=== PATIENT | male | born 1995 | race Caucasian/White ===

== ENCOUNTER 2017-11-08 12:09 | Emergency (ER) | payer OTHER ==
--- NOTE | 2017-11-08 12:49 | ED ---
Psychiatric Complaint - HPI Summary HPI Summary: The pt is a 21 y/o male with MHx of depression BIBA to [facility] c/o suicidal ideations for the last 2 months worse today. His counselor referred him to the ED. The stress is aggravated by a recent breakup with his girlfriend. He denies any SI and HI at bedside. He also denies any WILCOX, blurred vision, sore throat, dysuria, pedal edema, dysuria, abd pain, and hallucinations. - History Of Current Complaint Chief Complaint: EDMentalHealth Hx Obtained From: Patient Onset/Duration: Gradual Onset, Lasting Weeks - 8 weeks, Worse Since - Today Aggravating Factor(s): Recent Stress Related History: Positive For: Prior Psychiatric Issues Has Suicidal: Reports: Thoughts Has Homicidal: Denies: Thoughts Recent Stressor(s): Break up with girlfriend - Allergies/Home Medications Allergies/Adverse Reactions: Allergies Allergy/AdvReac Type Severity Reaction Status Date / Time No Known Allergies Allergy Verified 11/08/17 12:26 PMH/Surg Hx/FS Hx/Imm Hx Previously Healthy: No Opthamlomology History: Denies: Hx Legally Blind EENT History: Denies: Hx Deafness Psychiatric History: Reports: Hx Depression Infectious Disease History: No Infectious Disease History: Denies: Traveled Outside the [place] in Last 30 Days - Family History Known Family History: Negative: Seizure Disorder, Blood Disorder - Social History Occupation: Student Lives: Dormitory/Roommates Alcohol Use: None Substance Use Type: Reports: Marijuana Smoking Status (MU): Current Some Day Smoker Review of Systems Negative: Fever, Chills Negative: Blurred Vision Negative: Sore Throat, Ear Ache Negative: Chest Pain Negative: Shortness Of Breath Negative: Abdominal Pain Negative: dysuria Negative: Edema Negative: Rash, Bruising Negative: Headache Positive: Other - Negative: Hallucinations, SI/HI All Other Systems Reviewed And Are Negative: No Physical Exam - Summary Physical Exam Summary: Appearance: Alert, conversive, nontoxic appearing Skin: Warm, dry, no mottling, no rashes, no contusions HEENT: EOMI, PERRL, moist mucous membranes Neck: No masses on the neck, supple Respiratory: Clear to auscultation, breath sounds present, no rales, no rhonchi , no wheezes Cardiovascular: RRR, pulses are symmetrical in both lower and upper extremities Abdomen: Soft, non-tender Bowel Sounds: Present Musculoskeletal: No CVA tenderness, no obvious deformity, moving all extremities in a grossly normal manner Neurological: A&Ox3, CN II-XII Intact, moving all extremities symmetrically Psychiatric: Normal affect and mood; denies SI/HI Triage Information Reviewed: Yes Vital Signs On Initial Exam: Initial Vitals Temp Pulse Resp BP Pulse Ox 98.2 F 63 16 116/47 99 11/08/17 12:26 11/08/17 12:26 11/08/17 12:26 11/08/17 12:26 11/08/17 12:26 Vital Signs Reviewed: Yes Diagnostics - Vital Signs Vital Signs Temp Pulse Resp BP Pulse Ox 11/08/17 12:26 98.2 F 63 16 116/47 99 - Laboratory Result Diagrams: 11/08/17 13:30 11/08/17 13:30 Lab Statement: Any lab studies that have been ordered have been reviewed, and results considered in the medical decision making process. - EKG 13:24 Cardiac Rate: NL - 60 bpm EKG Interpretation: Normal QTC; Normal QRS and Normal axes Re-Evaluation - Re-Evaluation First Eval Re-Evaluation Time: 13:09 Change: Unchanged Comment: Discussed with the pt's mother and notified her about consulting his psychiatrist. Course/Dx - Course Course Of Treatment: A 21 year-old M with a MHx of depression presents to the ED with a CC of SI for the last 2 months. His counselor referred him to the ED. He denies any SI/HI WILCOX, blurred vision, sore throat, dysuria, pedal edema, dysuria, abd pain, and hallucinations. The patient got cleared for a MHE at 13: 21. An EKG reveals a normal sinus rhythm, normal QTC, normal QRS, normal axes. In the ED course, pt was not given any medications. The physical exam is normal. The patient will be discharged with a final Dx of depression. Pt is agreeable with this plan. Allergies noted. - Differential Dx/Clinical Impression Provider Diagnosis: Depression Discharge - Sign-Out/Discharge Documenting (check all that apply): Patient Departure - Discharge Plan Condition: Stable Disposition: HOME Patient Education Materials: Depression (ED) Referrals: [facility] - Prateek TIJERINA [Primary Care Provider] - 3 Days Additional Instructions: Return to ED for any new or worsening symptoms - Billing Disposition and Condition Condition: STABLE Disposition: Home - Attestation Statements Document Initiated by Rezaibmercedes: Yes Documenting Scribe: Meaghan Dexter Provider For Whom Chastity is Documenting (Include Credential): Dr. Avis Montano MD Scribe Attestation: Meaghan Blake , scribed for Dr. Avis Montano MD on 11/13/17 at 0938. Scribe Documentation Reviewed: Yes Provider Attestation: The documentation as recorded by the rezaibeMeaghan accurately reflects the service I personally performed and the decisions made by me, Dr. Avis Montano MD
[2017-11-08 13:38] LABS: ABS Basophils 0 10^3/ul (0-0.2); ABS Eosinophils 0.1 10^3/ul (0-0.6); ABS Lymphocytes 1.3 10^3/ul (1.0-4.8); ABS Monocytes 0.3 10^3/ul (0-0.8); ABS Neutrophils 5.8 10^3/ul (1.5-7.7); ABS Nucleated RBC 0 10^3/ul; Eosinophil % 0.8 % (0-6); Hematocrit 44 % (42-52); Hemoglobin 15.1 g/dl (14.0-18.0); Lymphocyte % 17.3 % (25-47); Mean Corpuscular HGB Conc 34 g/dl (31-36); Mean Corpuscular Hemoglobin 32 pg (27-31); Mean Corpuscular Volume 93 fL (80-94); Nucleated Red Blood Cells % 0; Platelet Count 201 10^3/ul (150-450); Red Blood Count 4.78 10^6/ul (4.00-5.40); Red Cell Distribution Width 14 % (10.5-15); White Blood Count 7.6 10^3/ul (3.5-10.8)
[2017-11-08 13:55] LABS: EGFR Non-African American 132.1 (>60)
[2017-11-08 14:02] LABS: Urine Appearance Clear; Urine Blood Negative (Negative); Urine Color Yellow; Urine Ketones Trace (Negative); Urine Protein Negative (Negative); Urine Specific Gravity 1.015 (1.010-1.030); Urine Urobilinogen Negative (Negative)
[2017-11-08 20:45] VITALS: BP 125/62
== END 2017-11-08 20:35 | disposition home or self-care (01) ==
LOC: ED 12:09
DX: F32.9 Major depressive disorder, single episode, unspecified (principal)
CPT/HCPCS: 36415; 80053; 80307; 80320; 80349; 81003; 83735; 84443; 85025; 93005; 99284; G0480